=== PATIENT | female | born 1990 | race Caucasian/White ===

== ENCOUNTER 2017-03-11 09:03 | Emergency (ER) | payer OTHER ==
[~2017-03-11] VITALS: Ht 162.6 cm; Wt 72.6 kg
--- NOTE | ~2017-03-11 | CT4 ---
[facility] A Service of [facility] RADIOLOGY TEXT RESULTS PATIENT: JONNY MURILLO LOCATION: [place] : [birth year] UNIT #: [id number] AGE: [address]: Richard Zimmerman DO SEX: F ORDER DR: [id number] [facility] [address] [place] [place], [place] [address] [id number] E MR#: [id number] #: [id number] NAME: JONNY MURILLO : 1990 SEX: F STUDY DATE/TIME: 03/11/2017 10:13 UNIT: [facility] ROOM: STUDY DESCRIPTION: CT Abd and Pelv Wo Cont Attending Physician: Richard Zimmerman D.O. Ordering Physician: Richard Zimmerman D.O. Primary Care Physician: Rod Bhatt M.D. MEDICAL IMAGING REPORT This report is preliminary unless electronic signature is present EXAM CT abdomen and pelvis without contrast INDICATION Right flank pain and nausea since 03/10/2017. PROCEDURE Unenhanced CT of the abdomen and pelvis. This CT examination was performed with one or more of the following radiation dose reduction techniques: automatic exposure control, adjustment of mA and/or kV according to patient size, and iterative reconstruction. COMPARISON 08/14/2012. FINDINGS ABDOMEN WITHOUT CONTRAST: Included lung bases are clear. Liver, spleen, adrenal glands, pancreas and gallbladder have an unremarkable unenhanced appearance. Bowel loops are nondilated. Moderate colonic stool. Appendix is normal. No radiodense urinary system calculus or hydronephrosis. PELVIS WITHOUT CONTRAST: No radiodense bladder calculus. No abnormal pelvic mass or fluid. No aggressive appearing bone lesion. IMPRESSION No acute findings in the abdomen or pelvis. Specifically, no radiodense urinary system calculus or hydronephrosis. Dictated by... [facility] A Service [facility] RADIOLOGY TEXT RESULTS PATIENT: JONNY MURILLO LOCATION: [facility] : [birth year] UNIT #: [id number] AGE: [address]: Richard Zimmerman DO SEX: F ORDER DR: Mateo Riggins M.D. THIS IS AN ELECTRONICALLY VERIFIED REPORT Mateo Riggins M.D. at 03/11/2017 5:00 PM JIA/giancarlo TD: 03/11/2017 14:17 JOB #: [id number] MEDICAL IMAGING REPORT Page 1 of 1 COPY
[~2017-03-11 09:03] MED LIST: ALBUTEROL17 GM INH; AMOXICILLIN PO; AMOXIL500 MG PO; AUGMENTIN PO; BACLOFEN10 MG PO; BENADRYL PO; BENZONATATE PO; CIPRODEX OTIC7.5 ML AU; CITRATE OF MAG296 M1 PO; CLARITIN10 MG PO; CLEOCIN150 MG PO; COLACE PO; DULCOLAX5 MG; FLEXERIL10 MG PO; HYCODAN60 ML 5MG/ DOB; IBUPROFEN PO; IBUPROFEN800 MG PO; LORTAB 10-5001 EACH PO; MIRALAX255 GM; MOTRIN600 MG PO; NAPROSYN500 MG PO; NAPROXEN PO; NO MEDICATIONS; ORTHO TRI-7 DAYS X PO; ORTHO TRI-7 DAYSX 3 PO; ORUDIS75 M1 DOB; PHENERGAN DM1 ML PO; PHENERGAN25 MG PO; PREDNISONE PO; PRENATAL1 TA1 PO; PREVACID PO; PRILOSEC20 M1 PO; REGLAN10 MG PO; TYLENOL #3 PO; ULTRAM PO; VICODIN 5/1 TAB 5/50 PO; VICODIN 5/500 T1 TAB PO; VOLTAREN75 MG PO; YASMIN 28 TABLE1 TAB PO; ZITHROMAX PO
[2017-03-11 09:29] LABS: URINE SOURCE CLEAN CATCH
[2017-03-11 09:36] LABS: BASOPHIL% 0.5 % (0-2.5); DIFF IND NO; EOSINOPHIL# 0.2 X10e3 (0-0.7); EOSINOPHIL% 2.9 % (0.0-7.0); HEMATOCRIT 37.9 % (35.0-45.0); LYMPHOCYTE# 2.7 X10e3 (1.0-3.5); MEAN CELL VOLUME 86.1 FL (83-96); MEAN CORPUSCULAR HEMOGLOBIN 29.6 PG (28-34); MEAN CORPUSCULAR HGB CONC 34.4 g/dL (30-36); MEAN PLATELET VOLUME 7.9 FL (6.5-11.5); MONOCYTE# 0.7 X10e3 (0-1.0); MONOCYTE% 9.2 % (3.0-12.0); NEUTROPHIL# 3.9 X10e3 (1.5-7.1); NEUTROPHIL% 51.4 % (40-75); PLATELET COUNT 230 X10e3 (140-420); RED BLOOD COUNT 4.41 X10e (3.90-5.30); WHITE BLOOD COUNT 7.6 X10e3 (4.0-10.5)
[2017-03-11 09:41] LABS: URINE APPEARANCE CLEAR; URINE BILIRUBIN NEG (NEG); URINE BLOOD NEG (NEG); URINE COLOR YELLOW; URINE GLUCOSE NEG (NEG); URINE KETONE NEG (NEG); URINE LEUKOCYTE ESTERASE NEG (NEG); URINE NITRATE NEG (NEG); URINE PROTEIN NEG (NEG); URINE SPECIFIC GRAVITY 1.021 (1.003-1.035); URINE UROBILINOGEN 0.2 MG/DL (NEG)
[2017-03-11 09:47] LABS: CULTURE INDICATED? NO
[2017-03-11 10:07] LABS: ALBUMIN SERUM 4.7 g/dL (3.5-5.0); BILIRUBIN, DIRECT 0.1 mg/dL (0.0-0.2); BILIRUBIN,INDIRECT 0.4 mg/dL (0.0-0.9); BILIRUBIN,TOTAL 0.5 mg/dL (0.2-2.0); CALCIUM SERUM 9.3 mg/dL (8.4-10.2); CREATININE SERUM 0.8 mg/dL (0.6-1.4); GLOM FILT RATE Estimated 101.1 mL/min (>60); POTASSIUM 3.4 mmol/L (3.5-5.1); PROTEIN TOTAL SERUM 7.8 g/dL (6.0-8.3)
[2017-03-12 23:42] LABS: CHLAMYDIA TRACH Not Detected (Not Detected); N GONOR Not Detected (Not Detected)
== END 2017-03-11 13:39 | disposition home or self-care (01) ==
LOC: CED 09:03
PROVIDERS: Emergency Medicine
DX: R10.9 Unspecified abdominal pain (principal); M54.9 Dorsalgia, unspecified; J45.909 Unspecified asthma, uncomplicated; K21.9 Gastro-esophageal reflux disease without esophagitis; F17.200 Nicotine dependence, unspecified, uncomplicated
CPT/HCPCS: 36415; 74176; 80048; 80076; 81003; 82947; 83690; 84703; 85025; 87491; 87591; 87808; 87905; 96372; 99284; J1885

== ENCOUNTER 2017-03-17 03:33 | Emergency (ER) | payer OTHER ==
--- NOTE | ~2017-03-17 | EKG ---
PATIENT: JONNY MURILLO UNIT #: [id number] Ventricular Rate: 56 BPM Atrial Rate: 56 BPM P-R Interval: 184 ms QRS Duration: 88 ms Q-T Interval: 442 ms QTC Calculation(Bezet): 426 ms P [place]: 29 degrees Calculated R [place]: 55 degrees Calculated T [place]: 28 degrees Diagnosis Line: Sinus bradycardia Diagnosis Line: Otherwise normal ECG Diagnosis Line: Diagnosis Line: Confirmed by EVARISTO VANCE MD ([id number]) on 03/18/2017 Diagnosis Line: 11:33:27 PM INTERPRETING MD: RAJIV LAURA
--- NOTE | ~2017-03-17 | CR72 ---
[facility] A Service of [facility] RADIOLOGY TEXT RESULTS PATIENT: JONNY MURILLO LOCATION: [facility] : [birth year] UNIT #: [id number] AGE: [address]: Td Hatfield SEX: F ORDER DR: [id number] [facility] [address] [place], [place] [address] [id number] E MR#: [id number] #: [id number] NAME: JONNY MURILLO : 1990 SEX: F STUDY DATE/TIME: 03/17/2017 6:26 UNIT: [facility] ROOM: STUDY DESCRIPTION: CR Chest Single View Portable Attending Physician: Td Hatfield P.A.-C. Ordering Physician: Td Hatfield P.A.-C. Primary Care Physician: Rod Bhatt M.D. MEDICAL IMAGING REPORT This report is preliminary unless electronic signature is present EXAM Portable chest 03/17/2017 HISTORY Shortness of breath and dizziness for 1 day, near-syncope, asthma. FINDINGS A single AP portable view of the chest shows both lungs to be clear. The heart is normal in size. The mediastinal contour is normal. No significant bone abnormalities are seen. IMPRESSION Normal portable chest. Dictated by... Fahad Naik M.D. THIS IS AN ELECTRONICALLY VERIFIED REPORT Fahad Naik M.D. at 03/18/2017 7:13 AM ROLO/giancarlo TD: 03/17/2017 06:48 JOB #: [id number] MEDICAL IMAGING REPORT Page 1 of 1 COPY
[2017-03-17 05:59] LABS: URINE SOURCE CLEAN CATCH
[2017-03-17 06:03] LABS: URINE APPEARANCE CLOUDY; URINE BILIRUBIN NEG (NEG); URINE BLOOD NEG (NEG); URINE COLOR YELLOW; URINE GLUCOSE NEG (NEG); URINE KETONE NEG (NEG); URINE LEUKOCYTE ESTERASE NEG (NEG); URINE NITRATE NEG (NEG); URINE PH 7.5 (5-8); URINE PROTEIN NEG (NEG)
[2017-03-17 06:05] LABS: BASOPHIL% 0.5 % (0-2.5); EOSINOPHIL# 0.3 X10e3 (0-0.7); EOSINOPHIL% 4.1 % (0.0-7.0); HEMATOCRIT 35.9 % (35.0-45.0); HEMOGLOBIN 12.1 gm/dL (12.0-16.0); LYMPHOCYTE# 2.4 X10e3 (1.0-3.5); LYMPHOCYTE% 29.6 % (17.0-45.0); MEAN CELL VOLUME 86.8 FL (83-96); MEAN CORPUSCULAR HEMOGLOBIN 29.3 PG (28-34); MEAN CORPUSCULAR HGB CONC 33.8 g/dL (30-36); MEAN PLATELET VOLUME 8.4 FL (6.5-11.5); MONOCYTE# 0.7 X10e3 (0-1.0); MONOCYTE% 8.4 % (3.0-12.0); NEUTROPHIL# 4.7 X10e3 (1.5-7.1); NEUTROPHIL% 57.4 % (40-75); PLATELET COUNT 230 X10e3 (140-420); RED BLOOD COUNT 4.13 X10e (3.90-5.30); RED CELL DISTRIBUTION WIDTH 13.3 % (11.0-15.5); WHITE BLOOD COUNT 8.1 X10e3 (4.0-10.5)
[2017-03-17 06:08] LABS: CULTURE INDICATED? NO
[2017-03-17 06:10] LABS: DIFF IND NO
[2017-03-17 06:41] LABS: BUN/CREATININE RATIO 21.25; CALCIUM SERUM 8.8 mg/dL (8.4-10.2); CREATININE SERUM 0.8 mg/dL (0.6-1.4); GLOM FILT RATE Estimated 101.1 mL/min (>60); POTASSIUM 3.3 mmol/L (3.5-5.1)
[2017-03-17 06:42] LABS: AMPHETAMINE NEG (NEG); BARBITURATES NEG (NEG); BENZODIAZEPINES NEG (NEG); COCAINE NEG (NEG); MARIJUANA NEG (NEG); OPIATES NEG (NEG); TRICYCLIC ANTIDEPRESSANTS NEG (NEG); U METHADONE NEG (NEG)
== END 2017-03-17 07:02 | disposition home or self-care (01) ==
LOC: CED 03:33
PROVIDERS: Physician Assistant
DX: R55 Syncope and collapse (principal); K21.9 Gastro-esophageal reflux disease without esophagitis; F32.9 Major depressive disorder, single episode, unspecified; F17.210 Nicotine dependence, cigarettes, uncomplicated; Z88.6 Allergy status to analgesic agent; Z91.040 Latex allergy status
CPT/HCPCS: 36415; 71010; 80048; 80307; 81003; 82947; 84703; 85025; 93005; 96360; 99285

== ENCOUNTER 2017-04-19 17:30 | Emergency (ER) | payer OTHER ==
[~2017-04-19] VITALS: Ht 162.6 cm; Wt 74.8 kg
[2017-04-19 17:53] LABS: BASOPHIL% 0.5 % (0-2.5); EOSINOPHIL# 0.3 X10e3 (0-0.7); EOSINOPHIL% 3.7 % (0.0-7.0); HEMATOCRIT 39.3 % (35.0-45.0); HEMOGLOBIN 13.4 gm/dL (12.0-16.0); LYMPHOCYTE# 2.2 X10e3 (1.0-3.5); LYMPHOCYTE% 27.8 % (17.0-45.0); MEAN CELL VOLUME 86.7 FL (83-96); MEAN CORPUSCULAR HEMOGLOBIN 29.6 PG (28-34); MEAN CORPUSCULAR HGB CONC 34.1 g/dL (30-36); MONOCYTE# 0.6 X10e3 (0-1.0); MONOCYTE% 7.5 % (3.0-12.0); NEUTROPHIL# 4.8 X10e3 (1.5-7.1); NEUTROPHIL% 60.5 % (40-75); PLATELET COUNT 235 X10e3 (140-420); RED BLOOD COUNT 4.53 X10e (3.90-5.30); RED CELL DISTRIBUTION WIDTH 13.2 % (11.0-15.5); WHITE BLOOD COUNT 7.9 X10e3 (4.0-10.5)
[2017-04-19 17:56] LABS: DIFF IND NO
[2017-04-19 18:20] LABS: URINE SOURCE CLEAN CATCH
[2017-04-19 18:22] LABS: ALBUMIN SERUM 4.6 g/dL (3.5-5.0); ALKALINE PHOSPHATASE 45 U/L (32-92); ALT (SGPT) 13 U/L (10-40); AST (SGOT) 19 U/L (10-42); BILIRUBIN, DIRECT <0.1 mg/dL (0.0-0.2); BILIRUBIN,INDIRECT 0.4 mg/dL (0.0-0.9); BILIRUBIN,TOTAL 0.5 mg/dL (0.2-2.0); BLOOD UREA NITROGEN 17 mg/dL (9-23); CALCIUM SERUM 9.2 mg/dL (8.4-10.2); CARBON DIOXIDE 27 mmol/L (22-31); CHLORIDE 101 mmol/L (100-111); GLOM FILT RATE Estimated 77.2 mL/min (>60); GLUCOSE FASTING 94 mg/dL (70-110); LIPASE 38 U/L (22-51); PROTEIN TOTAL SERUM 7.7 g/dL (6.0-8.3); SODIUM 137 mmol/L (135-145)
[2017-04-19 19:15] LABS: URINE APPEARANCE CLEAR; URINE BILIRUBIN NEG (NEG); URINE BLOOD TRACE (NEG); URINE COLOR YELLOW; URINE GLUCOSE NEG (NEG); URINE KETONE NEG (NEG); URINE LEUKOCYTE ESTERASE NEG (NEG); URINE NITRATE NEG (NEG); URINE PH 5.5 (5-8); URINE PROTEIN NEG (NEG); URINE SPECIFIC GRAVITY 1.028 (1.003-1.035)
[2017-04-19 19:18] LABS: CULTURE INDICATED? YES; URINE BACTERIA AUWI 1+ (NEGATIVE); URINE SQUAMOUS EPITHELIAL CELL OCC /[HPF]
== END 2017-04-19 20:27 | disposition left against medical advice (07) ==
LOC: CED 17:30
DX: Z53.21 Procedure and treatment not carried out due to patient leaving prior to being seen by health care provider (principal)
CPT/HCPCS: 80048; 80076; 81003; 83690; 84703; 85025; 87086